=== PATIENT | female | born 1995 | race African-American/Black ===

== ENCOUNTER 2018-02-09 13:14 | Emergency (ER) | payer MEDICAID, OTHER ==
[~2018-02-09] VITALS: Ht 157.5 cm; Wt 87.0 kg
[2018-02-09 13:22] VITALS: BP 101/55
== END 2018-02-09 20:32 | disposition left against medical advice (07) ==
LOC: ER 13:14
DX: R07.89 Other chest pain (principal); R05 Cough; R06.02 Shortness of breath; G43.909 Migraine, unspecified, not intractable, without status migrainosus
CPT/HCPCS: 99281

== ENCOUNTER 2022-05-10 14:45 | Emergency (ER) | payer MEDICAID, OTHER ==
[~2022-05-10] VITALS: Ht 167.6 cm; Wt 81.0 kg
[2022-05-10] MEDS ORDERED: KETOROLAC 30MG/ML VIAL IM ONE (15:45)
[2022-05-10 16:05] VITALS: BP 110/82
== END 2022-05-10 16:14 | disposition home or self-care (01) ==
LOC: ER 14:51
DX: J02.8 Acute pharyngitis due to other specified organisms (principal); J45.909 Unspecified asthma, uncomplicated; G43.909 Migraine, unspecified, not intractable, without status migrainosus; Z91.048 Other nonmedicinal substance allergy status
CPT/HCPCS: 81025; 96372; 99283; J1885